=== PATIENT | male | born 1970 | race Caucasian/White ===

== ENCOUNTER 2016-09-04 10:19 | Emergency (ER) | payer OTHER, BC ==
[2016-09-04 10:49] VITALS: BP 129/76; PULSE 75; TEMP 98.2; BMI 24.3
[2016-09-04] MEDS ORDERED: TETRACAINE 0.5% OPHTH SOLN 2 ML BOTTLE ONE (12:12)
[2016-09-04] MEDS ORDERED: ERYTHROMYCIN 0.5% OPHTHALMIC OINTMENT 3.5 GM TUBE ONE (12:22)
--- NOTE | 2016-09-04 12:35 | PDOC ---
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 Denies visual changes, states is tender with photophobia but visual acuity has unchanged. States used eye wash at work with no resolved. 09/04/16 12:30 09/04/16 12:38 Timing/Duration: unsure, 1-3 hours Severity: mild, moderate Associated Symptoms: reports: denies symptoms Past History - Travel Traveled outside of the country in the last 30 days: No Close contact w/someone who was outside of country & ill: No - Past Medical History Allergies/Adverse Reactions: Allergies Allergy/AdvReac Type Severity Reaction Status Date / Time No Known Allergies Allergy Verified 09/04/16 10:47 Home Medications: Ambulatory Orders Lisinopril [Prinivil] 5 mg PO DAILY 03/20/12 Tobramycin 0.3% Ophth Soln [Tobrex Ophthalmic Solution -] 1 drop OS Q4HWA #1 bottle 12/21/13 Anemia: No Asthma: No Cancer: No Cardiac Disorders: No CVA: No COPD: No CHF: No Dementia: No Diabetes: No GI Disorders: Yes (BENIGN NEOPLASM OF COLON) Disorders: No HTN: Yes Hypercholesterolemia: No Liver Disease: No Suicide Attempt (Hx): No Seizures: No Thyroid Disease: No - Surgical History Abdominal Surgery: No - Immunization History Td Vaccination: Yes (2010) - Psycho/Social/Smoking Cessation Hx Anxiety: No Suicidal Ideation: No Smoking Status: Yes Smoking History: Current every day smoker Have you smoked in the past 12 months: Yes Number of Cigarettes Smoked Daily: 20 Information on smoking cessation initiated: No 'Breaking Loose' booklet given: 03/22/12 Hx Alcohol Use: No Drug/Substance Use Hx: No Substance Use Type: None Hx Substance Use Treatment: No Review of Systems - Review of Systems Able to Perform ROS?: No Is the patient limited Latvian proficient: No Constitutional: Yes: Symptoms Reported HEENTM: Yes: Symptoms Reported, See HPI, Eye Pain, Tearing. No: Blurred Vision Respiratory: No: Symptoms reported Neurological: Yes: Symptoms reported, See HPI All Other Systems: Reviewed and Negative *Physical Exam - Vital Signs Last Vital Signs Temp Pulse Resp BP Pulse Ox 98.2 F 75 18 129/76 100 09/04/16 10:47 09/04/16 10:47 09/04/16 10:47 09/04/16 10:47 09/04/16 10:47 - Physical Exam General Appearance: Yes: Nourished, Appropriately Dressed HEENT: positive: AL (slit lamp exam reveals a foreign body at 5:00 to cornea consistent with a metal fragment. States sensation to right upper lid with sweeping using Q-tip reveals another small dark foreign body.. Visual acuity within normal limits, no other foreign bodies detected or corneal abrasion.), Normal ENT Inspection, TMs Normal, Pharynx Normal, Nasal Congestion, Rhinorrhea Neck: positive: Supple. negative: Tender, Lymphadenopathy (R), Lymphadenopathy (L) Respiratory/Chest: positive: Lungs Clear, Normal Breath Sounds Cardiovascular: positive: Regular Rhythm Gastrointestinal/Abdominal: positive: Normal Bowel Sounds, Soft Extremity: positive: Normal Capillary Refill, Normal Inspection, Normal Range of Motion Integumentary: positive: Normal Color, Pale Neurologic: positive: running rigger II-XII NML intact, Fully Oriented, Alert, Normal Mood/ Affect, Normal Response Medical Decision Making - Medical Decision Making 09/04/16 12:[address] 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 *DC/Admit/Observation/Transfer Diagnosis at time of Disposition: Foreign body of right eye Qualifiers: Encounter type: initial encounter Qualified Code(s): T15.91XA - Foreign body on external eye, part unspecified, right eye, initial encounter - Discharge Dispostion Disposition: HOME Condition at time of disposition: Stable Admit: No - Referrals Referrals: Stephane Lara [Primary Care Provider] - Dyllan Crane [Staff Physician] - - Patient Instructions Printed Discharge Instructions: DI for Foreign Body in the Eye Additional Instructions: Go to poultry processing supervisor office now - Post Discharge Activity Work/School Note: Back to Work
== END 2016-09-04 12:54 | disposition home or self-care (01) ==
LOC: JERFT 10:19
DX: S00.251A Superficial foreign body of right eyelid and periocular area, initial encounter (principal); T15.81XA Foreign body in other and multiple parts of external eye, right eye, initial encounter; W31.82XA Contact with other commercial machinery, initial encounter; Y93.H3 Activity, building and construction; Y92.63 Factory as the place of occurrence of the external cause; Y99.0 Civilian activity done for income or pay
CPT/HCPCS: 99281-25

== ENCOUNTER 2017-12-28 15:39 | Emergency (ER) | payer BC, OTHER ==
--- NOTE | 2017-12-28 16:01 | PDOC ---
Rapid Medical Evaluation Medical Evaluation: Allergies Allergy/AdvReac Type Severity Reaction Status Date / Time No Known Allergies Allergy Verified 12/28/17 15:55 12/28/17 15:56 I have performed a brief in-person evaluation of this patient. The patient presents with a chief complaint of: Here w/ constipation x 3 days, BRB on tissue today. For past 2 weeks, has been on Colleen's diet. H/o HTN, anxiety. Pertinent physical exam findings:carlo uncomfortable, unable to sit in triage 2/2 rectal pain I have ordered the following:abd XR The patient will proceed to the ED for further evaluation. Discharge Disposition - Diagnosis Constipation Qualifiers: Constipation type: unspecified constipation type Qualified Code(s): K59.00 - Constipation, unspecified - Referrals - Patient Instructions - Post Discharge Activity
[2017-12-28 16:04] VITALS: BP 121/85; PULSE 96; TEMP 98.8; BMI 30.2
[2017-12-28] MEDS ORDERED: LORazepam 2 MG/ML SDV VIAL ONE (17:16)
--- NOTE | 2017-12-28 17:28 | PDOC ---
History of Present Illness - General Chief Complaint: Constipation Stated Complaint: BLEEDING FROM RECTAL/PAIN Time Seen by Provider: 12/28/17 16:12 - History of Present Illness Initial Comments: 12/28/17 17:28 Pt is a 47 y/o gentleman with a significant past medical history of HTN, anxiety , and colonic polyps. Pt presents this afternoon to [facility] c/o constipation x 3 weeks. Pt endorses that he began the Colleen's diet 3 weeks ago. Last bowel movement was Sunday where pt had to strain. This afternoon pt endorses he was using the restroom at his work when he noticed BRBPR in the toilette and decided to come to the ER. Pt states that he has tried to self-disimpact himself with no success. Denies using any OTC stool softeners or suppository. Denies any recent fevers, chills, headache or dizziness. Allergies: NKA Past surgical history: Umbilical Hernia repair 25 yearsa ago([facility]) Social History: Smoker (10 cig/ per day). Denies EtOH use and recreational drug use. PMD: Dr. Abdirahman Arnold/ Dr Ofe Miller Past History - Past Medical History Allergies/Adverse Reactions: Allergies Allergy/AdvReac Type Severity Reaction Status Date / Time No Known Allergies Allergy Verified 12/28/17 15:55 Home Medications: Ambulatory Orders Alprazolam [Xanax] 1 mg PO PRN PRN 12/28/17 Lisinopril/Hydrochlorothiazide [Lisinopril-Hctz 20-25 mg Tab] 1 each PO DAILY Anemia: No Asthma: No Cancer: No Cardiac Disorders: No CVA: No COPD: No CHF: No Dementia: No Diabetes: No GI Disorders: Yes (BENIGN NEOPLASM OF COLON) Disorders: No HTN: Yes Hypercholesterolemia: No Liver Disease: No Seizures: No Thyroid Disease: No - Surgical History Abdominal Surgery: No - Immunization History Td Vaccination: Yes (2010) - Suicide/Smoking/Psychosocial Hx Smoking Status: Yes Smoking History: Current some day smoker Have you smoked in the past 12 months: Yes Number of Cigarettes Smoked Daily: 2 Information on smoking cessation initiated: Yes 'Breaking Loose' booklet given: 12/28/17 Hx Alcohol Use: No Drug/Substance Use Hx: No Substance Use Type: None Hx Substance Use Treatment: No Review of Systems - Review of Systems Able to Perform ROS?: Yes Is the patient limited Turkish proficient: No Constitutional: No: Symptoms Reported, See HPI, Chills, Diaphoresis, Fever, Loss of Appetite, Malaise, Night Sweats, Weakness, Weight Stable, Unintentional Wgt. Loss, Unexplained wgt Loss, Other HEENTM: No: Symptoms Reported, See HPI, Eye Pain, Blurred Vision, Tearing, Recent change in vision, Double Vision, Cataracts, Ear Pain, Ocular Prothesis, Ear Discharge, Nose Pain, Nose Congestion, Tinnitus, Nose Bleeding, Hearing Loss , Throat Pain, Throat Swelling, Mouth Pain, Dental Problems, Difficulty Swallowing, Mouth Swelling, Other Respiratory: No: Symptoms reported, See HPI, Cough, Orthopnea, Shortness of Breath, SOB with Exertion, SOB at Rest, Stridor, Wheezing, Productive cough, Hemoptysis, Other ABD/GI: Yes: Abd. Pain w/ defecation, Constipated, Rectal Bleeding, Abdominal cramping. No: Symptoms Reported, See HPI, Abdominal Distended, Blood Streaked Bowels, Diarrhea, Difficulty Swallowing, Nausea, Poor Appetite, Poor Fluid Intake, Vomiting, Indigestion, Tarry Stools, Other : No: Symptoms Reported, See HPI, Burning, Dysuria, Discharge, Frequency, Flank Pain, Hematuria, Incontinence, Pain, Urgency, Testicular Mass, Testicular Swelling, Lesions, Testicular Pain, Other *Physical Exam - Vital Signs Last Vital Signs Temp Pulse Resp BP Pulse Ox 98.8 F 96 H 16 121/85 99 12/28/17 15:55 12/28/17 15:55 12/28/17 15:55 12/28/17 15:55 12/28/17 15:55 Medical Decision Making - Medical Decision Making 12/28/17 17:27 Pt disimpacted by me right now, multiple hard round-like structures of feces evacuated. 1 mg Ativan I.M given to pt for sedation. 12/28/17 18:19 Pt given fleet enema, feeling much better. *DC/Admit/Observation/Transfer Diagnosis at time of Disposition: Constipation Qualifiers: Constipation type: unspecified constipation type Qualified Code(s): K59.00 - Constipation, unspecified - Discharge Dispostion Disposition: HOME Condition at time of disposition: Good - Referrals Referrals: Lewis Arnold MD [Primary Care Provider] - - Patient Instructions Printed Discharge Instructions: Constipation, Increased Dietary Fiber May Improve Constipation Conditions With Pelvic Avtar - Post Discharge Activity
[2017-12-28] MEDS ORDERED: SODIUM PHOSPHATE/NA BIPHOS 133 ML ENEMA PR ONE (17:40)
--- NOTE | 2017-12-28 17:50 | PDOC ---
Attending Attestation - Resident Resident Name: Santo Mayfield - ED Attending Attestation I have performed the following: I have examined & evaluated the patient, The case was reviewed & discussed with the resident, I agree w/resident's findings & plan - HPI HPI: 12/28/17 17:48 47 YOM, with a significant past medical history of HTN and anxiety, colonic polyps, who presents to the emergency department with, 3 weeks of constipation. The patient also endorses bright red blood when wiping his anus today. The patient has been on an Atkins diet for the past 2 weeks. He denies any recent fevers, chills, headache or dizziness. He denies any recent nausea, vomit, or diarrhea. He denies any recent chest pain or shortness of breath. He denies any recent urinary symptoms. Allergies: NKA Past surgical history: None reported. Social History: Smoker (2 per day). Denies EtOH use and recreational drug use. Primary Care Physician: Dr. Abdirahman Arnold - Physicial Exam PE: 12/28/17 17:48 NAD, well appearing, anicteric, neck supple. abdomen soft nontender. rectal exam by resident, +large stool impaction in rectum. no bleeding. HALL x4. No peripheral edema. normal color for ethnicity, WWP. - Medical Decision Making 12/28/17 17:44 47 YOM with HTN, anxiety, and colonic polyps presenting with constipation x 3 weeks, started Atkins diet at that time. most likely constipation w/o other systemic or symptoms. +known precipitant in setting of dietary changes and poor fiber intake vitals wnl. HR in 90s, but also anxious with fecal impaction. anxiolysis provided. abdomen soft, nontender. nonperitoneal. no imaging indicated. resident performed rectal exam on my supervision with large fecal ball, disimpacted w/immediate relief. no hemorrhoids or bleeding. fleet enema here. constipation care discussed extensively at bedside., high fiber diet, hydration and fruits/veggies, diet modification, miralax PRN for bowel regimen, fleet enema PRN as well DC in stable condition. Rx. senna-colace, stool softener, diet and primary followup. return precautions discussed 12/28/17 17:50 12/28/17 17:52
== END 2017-12-28 18:17 | disposition home or self-care (01) ==
LOC: JER 15:39
PROC: 3E033NZ Introduction of Analgesics, Hypnotics, Sedatives into Peripheral Vein, Percutaneous Approach (ICD-10-PCS; principal; 2017-12-28)
DX: K59.00 Constipation, unspecified (principal); F17.210 Nicotine dependence, cigarettes, uncomplicated; I10 Essential (primary) hypertension
CPT/HCPCS: 99282-25

== ENCOUNTER 2021-11-16 12:28 | Emergency (ER) | payer OTHER, BC ==
[2021-11-16 12:38] VITALS: BP 173/90; PULSE 80; RESP 20; TEMP 98.4; BMI 28.8
[2021-11-16] MEDS ORDERED: morphine CARPU-JECT 2 MG/1 ML DISP.SYRIN IM ONE (13:57)
[2021-11-16] MEDS ORDERED: morphine SULFATE 4 MG/ML VIAL ONE (14:14)
[2021-11-16] MEDS ORDERED: CYCLOBENZAPRINE HCL 10 MG TABLET (FP) PO ONE (16:57)
[2021-11-16] MEDS ORDERED: KETOROLAC TROMETHAMINE 60 MG/2 ML VIAL IM ONE (16:57)
[2021-11-16] MEDS ORDERED: KETOROLAC TROMETHAMINE 60 MG/2 ML VIAL ONE (17:00)
[2021-11-16] MEDS ORDERED: CYCLOBENZAPRINE HCL 10 MG TABLET (FP) ONE (17:00)
[2021-11-16] MEDS ORDERED: ACETAMINOPHEN 500 MG TABLET (FP) PO ONE (18:05)
== END 2021-11-16 18:25 | disposition home or self-care (01) ==
LOC: JER 12:28
PROC: 3E023NZ Introduction of Analgesics, Hypnotics, Sedatives into Muscle, Percutaneous Approach (ICD-10-PCS; principal; 2021-11-16)
DX: M25.511 Pain in right shoulder (principal); W17.89XA Other fall from one level to another, initial encounter
CPT/HCPCS: 70450-TC; 72125-TC; 73030-TC-RT-FY; 73200-TC-RT; 99285-25